=== PATIENT | female | born 1960 | race African-American/Black ===

== ENCOUNTER 2017-09-12 08:34 | Emergency (ER) | payer BC ==
[2017-09-12] MEDS: fentaNYL PF VIAL 100 MCG/2 ML VIAL IM ×2 (09:11)
== END 2017-09-12 11:09 | disposition home or self-care (01) ==
LOC: ER 08:34
DX: S52.501A Unspecified fracture of the lower end of right radius, initial encounter for closed fracture (principal); F17.200 Nicotine dependence, unspecified, uncomplicated; Z90.710 Acquired absence of both cervix and uterus; Z88.5 Allergy status to narcotic agent; Z98.890 Other specified postprocedural states; Z88.0 Allergy status to penicillin; Z88.1 Allergy status to other antibiotic agents; W18.30XA Fall on same level, unspecified, initial encounter; W18.2XXA Fall in (into) shower or empty bathtub, initial encounter; Y93.89 Activity, other specified; Y92.89 Other specified places as the place of occurrence of the external cause; Y99.8 Other external cause status
CPT/HCPCS: 29125; 73090; 73100; 96372; 99284; J3010